=== PATIENT | female | born 1970 | race Caucasian/White ===

== ENCOUNTER → 2019-01-29 | Outpatient (CLI) | payer OTHER | LOC: M.RAD 14:25 | DX: M19.072 Primary osteoarthritis, left ankle and foot (principal); M77.32 Calcaneal spur, left foot; Z88.8 Allergy status to other drugs, medicaments and biological substances ==

== ENCOUNTER → 2019-02-27 | Outpatient (CLI) | payer OTHER ==
--- NOTE | ~2019-02-27 | 24HR ---
[place] [address] [facility] MONITOR REPORT Name: SAUNDRA LEE Room: [facility]#: [id number] Admission: 02/27/19 Attend Phys: Karoline Montalvo Discharge: Date of : 72 Date of Service: 02/28/191421 Report #: [id number] THIS REPORT FOR: //name// [facility] Test Date: 2019-02-28 Test Time: 14:22:25 Pat Name: SAUNDRA LEE Department: Room: Gender: F Lobster Catcher: : 1970 Requested By: Karoline Montalvo Order Number: [id number] Henrietta BOUCHER: Interpretive Statements [email or web address] [email or web address] 21 21 Epiphany EpiphMD jenn /EPI
== END ==
LOC: M.CRD 12:37
DX: R55 Syncope and collapse (principal); Z88.8 Allergy status to other drugs, medicaments and biological substances